=== PATIENT | male | born 1975 | race Caucasian/White ===

== ENCOUNTER 2016-08-05 16:36 | Emergency (ER) | payer SELFPAY ==
[2016-08-05] MEDS ORDERED: ONDANSETRON ODT 4 MG TAB ONE (18:47)
[2016-08-05] MEDS ORDERED: CYCLOBENZAPRINE 10 MG TAB ONE (18:47)
[2016-08-05] MEDS ORDERED: MORPHINE 4 MG/ML SYR ONE (18:48)
[2016-08-05] MEDS ORDERED: DILAUDID 1 MG/ML AMP ONE (20:07)
== END 2016-08-05 20:30 | disposition home or self-care (01) ==
LOC: ER 16:36
DX: S16.1XXA Strain of muscle, fascia and tendon at neck level, initial encounter (principal)
CPT/HCPCS: 96372